=== PATIENT | female | born 1990 | race Hispanic/Latino ===

== ENCOUNTER 2018-04-19 14:49 | Inpatient (IN) | payer BC ==
[~2018-04-19] VITALS: Ht 160 cm; Wt 88.0 kg
--- NOTE | 2018-04-19 18:02 | PR ---
[facility] [address] [place], [place] [address] Signed Progress Notes IP Datetime Report Generated by CPN: 04/19/2018 18:01 PROGRESS NOTES: [id number] Impression: Normal progression of labor; Reassuring heart rate Plan: Continue present management VITAL SIGNS: [id number] Vital Signs: Reviewed VS Notable Details: Slightly elevated systolic BP EXAM: [id number] Dilatation: 5.5 Effacement: 90 Station: -2 Uterine Contractions: q 2-3 minutes MEMBRANES: [id number] Membrane Status: Bulging Amniotic Fluid Color: Clear Comments: Pt seen and examined. Doing well. Ctxs painful and regular. Does not desire intervention. Residual bulging membranes noted by RN at last cervix check. Pt declines AROM at this time. Will continue expectant management. BPs good. No SCOTT, RUQ pain, or visual changes. Fetus A: [id number] FHR Baseline: 130 Variability: Moderate 6-25bpm Accelerations: 15X15 Decelerations: None FHR Category: Category I Presentation: Vertex Comments on Fetus A: No evidence of metabolic acidosis Fetus B: [id number] Signing Physician: Maryann Shoemaker DO Copies: ~ *Electronically Signed* 04/19/18 1804 MARYANN SHOEMAKER DO PATIENT NAME: ALEXANDRA WALL PROGRESS NOTE DATE OF : 86 PHYSICIAN: MARYANN SHOEMAKER DO RPT #: [id number] REPORT IS CONFIDENTIAL AND NOT TO BE RELEASED WITHOUT AUTHORIZATION
--- NOTE | 2018-04-19 18:03 | PR ---
[facility] [address] [employer] [employer], [place] [address] Signed Progress Notes IP Datetime Report Generated by CPN: 04/19/2018 18:02 PROGRESS NOTES: [id number] Impression: Normal progression of labor; Reassuring heart rate Plan: Continue present management VITAL SIGNS: [id number] Vital Signs: Reviewed VS Notable Details: Slightly elevated systolic BP EXAM: [id number] Dilatation: 5.5 Effacement: 90 Station: -2 Uterine Contractions: q 2-3 minutes MEMBRANES: [id number] Membrane Status: Bulging Amniotic Fluid Color: Clear Comments: Pt seen and examined. Doing well. Ctxs painful and regular. Does not desire intervention. Residual bulging membranes noted by RN at last cervix check. Pt declines AROM at this time. Will continue expectant management. BPs good. No SCOTT, RUQ pain, or visual changes. Fetus A: [id number] FHR Baseline: 130 Variability: Moderate 6-25bpm Accelerations: 15X15 Decelerations: None FHR Category: Category I Presentation: Vertex Comments on Fetus A: No evidence of metabolic acidosis Fetus B: [id number] Signing Physician: Maryann Shoemaker DO Copies: ~ *Electronically Signed* 04/19/181801 MARYANN SHOEMAKER DO PATIENT NAME: ALEXANDRA WALL PROGRESS NOTE DATE OF : 86 PHYSICIAN: MARYANN SHOEMAKER DO RPT #: [id number] REPORT IS CONFIDENTIAL AND NOT TO BE RELEASED WITHOUT AUTHORIZATION
--- NOTE | 2018-04-19 19:41 | PR ---
[facility] [address] [facility] [place], [place] [address] Signed Progress Notes IP Datetime Report Generated by CPN: 04/19/2018 19:41 PROGRESS NOTES: [id number] Impression: Normal progression of labor; Reassuring heart rate Plan: Continue present management VITAL SIGNS: [id number] Vital Signs: Reviewed; Within Normal Limits VS Notable Details: Slightly elevated systolic BP EXAM: [id number] Dilatation: 6.0 Effacement: 90 Station: -2 Uterine Contractions: q 2-3 minutes MEMBRANES: [id number] Membrane Status: Bulging Amniotic Fluid Color: Clear Comments: Reviewed strip and progress w/ RN. Pt just checked and no bulgy bag noted; possible SROM. CTXs painful, but pt tolerating well and now in the tub. Will continue expectant management. Fetus A: [id number] FHR Baseline: 130 Variability: Moderate 6-25bpm Accelerations: 15X15 Decelerations: None FHR Category: Category I Presentation: Vertex Comments on Fetus A: No evidence of metabolic acidoisis Fetus B: [id number] Signing Physician: Maryann Shoemaker DO Copies: ~ *Electronically Signed* 04/19/181940 MARYANN SHOEMAKER DO PATIENT NAME: ALEXANDRA WALL PROGRESS NOTE DATE OF : 86 PHYSICIAN: MARYANN SHOEMAKER DO RPT #: [id number] REPORT IS CONFIDENTIAL AND NOT TO BE RELEASED WITHOUT AUTHORIZATION
--- NOTE | 2018-04-19 22:49 | PR ---
[facility] [address] [place], [place] [address] Signed Progress Notes IP Datetime Report Generated by CPTriston: 04/19/2018 22:48 PROGRESS NOTES: [id number] Impression: Normal progression of labor Procedures: Artificial ROM; Sterile Vag Exam Plan: Continue present management Other Plans: Consider IUPC if no significant cervical change in 1-2 hrs Other Informed Consents: AROM VITAL SIGNS: [id number] Vital Signs: Reviewed VS Notable Details: Slightly elevated systolic BP EXAM: [id number] Dilatation: 7.0 Effacement: 90 Station: -1 Uterine Contractions: q2 minutes MEMBRANES: [id number] Membrane Status: Bulging Amniotic Fluid Color: Clear Comments: Pt seen and examined. Doing well. Contractions painful and frequent. Has not continued to leak fluid. On exam she has a large bulging bag. Reviewed AROM and patient gives verbal consent. AROM performed without difficulty for moderate amount of clear fluid. Pt declines epidural at this time. Mother and baby doing well. Continue expectant management. Consider IUPC if no significant cervical change in 1-2 hrs. Fetus A: [id number] FHR Baseline: 150 Variability: Moderate 6-25bpm Accelerations: 15X15 Decelerations: Variable FHR Category: Category II Presentation: Vertex Comments on Fetus A: No evidence of metabolic acidosis Fetus B: [id number] Signing Physician: Maryann Shoemaker DO Copies: *Electronically Signed* 04/19/18 3135 MARYANN SHOEMAKER DO PATIENT NAME: ALEXANDRA WALL PROGRESS NOTE DATE OF : 86 PHYSICIAN: MARYANN SHOEMAKER DO RPT #: [id number] REPORT IS CONFIDENTIAL AND NOT TO BE RELEASED WITHOUT AUTHORIZATION [address] [place], [place] [address] Signed ~ *Electronically Signed* 04/19/18 2248 MARYANN SHOEMAKER DO PATIENT NAME: ALEXANDRA WALL PROGRESS NOTE DATE OF : 86 PHYSICIAN: MARYANN SHOEMAKER DO RPT #: [id number] REPORT IS CONFIDENTIAL AND NOT TO BE RELEASED WITHOUT AUTHORIZATION
--- NOTE | 2018-04-20 02:32 | PR ---
[facility] [address] [place], [place] [address] Signed Progress Notes IP Datetime Report Generated by MARCUS: 04/20/2018 02:32 PROGRESS NOTES: [id number] Impression: Normal progression of labor; Reassuring heart rate Procedures: Artificial ROM; Sterile Vag Exam Plan: Continue present management; Anticipate Vaginal Delivery Other Plans: Consider IUPC if no significant cervical change in 1-2 hrs Informed Consent Obtain: Vaginal Delivery Other Informed Consents: AROM VITAL SIGNS: [id number] Vital Signs: Reviewed; Within Normal Limits VS Notable Details: Slightly elevated systolic BP EXAM: [id number] Dilatation: 10.0 Effacement: 100 Station: 0 Uterine Contractions: q2 minutes MEMBRANES: [id number] Membrane Status: Bulging Amniotic Fluid Color: Clear Comments: Pt seen and evaluated. Doing well. Pt complete and feeling urge to push. FHT reassuring. Anticipate soon. Pelvic exam per RN Fetus A: [id number] FHR Baseline: 130 Variability: Moderate 6-25bpm Accelerations: 15X15 Decelerations: Variable FHR Category: Category II Presentation: Vertex Comments on Fetus A: No evidence of metabolic acidosis Fetus B: [id number] Signing Physician: Maryann Shoemaker DO Copies: ~ *Electronically Signed* 04/20/18 0232 MARYANN SHOEMAKER DO PATIENT NAME: ALEXANDRA WALL PROGRESS NOTE DATE OF : 86 PHYSICIAN: MARYANN SHOEMAKER DO RPT #: [id number] REPORT IS CONFIDENTIAL AND NOT TO BE RELEASED WITHOUT AUTHORIZATION
--- NOTE | 2018-04-21 14:34 | PR ---
[facility] [address] [place], [place] [address] Signed PP Progress Notes Datetime Report Generated by CPN: 04/21/2018 14:34 SUBJECTIVE: [id number] Pain: Within normal limits Nausea/Vomiting: Denies Flatus: Yes Bowel Movement: No Vital Signs: [id number] Vital Signs: Reviewed; Within Normal Limits EXAM: [id number] Cardiovascular: Normal Respiratory: Normal Abdomen/Uterus: Normal Lochia: Normal Vulva/Perineum: Not Done Breasts: Not Done CVA Tenderness: Normal Extremities: Normal Incision: Not Applicable Progress: Normal Exam Comments: Fundus Firm U-2 nontender IMPRESSION/PLAN/PROCEDURES: [id number] Progress Notes: Pt seen and examined. Doing well. Ambulating, voiding, and tolerating full diet. Pain and lochia minimal. well. No fevers/chills/concerns. Desires d/c home. Reviwed 3rd degree lac and importance of avoiding constipation. Signing Physician: Maryann Shoemaker DO Copies: ~ *Electronically Signed* 04/21/18 1434 MARYANN SHOEMAKER DO PATIENT NAME: ALEXANDRA WALL PROGRESS NOTE DATE OF : 86 PHYSICIAN: MARYANN SHOEMAKER DO RPT #: [id number] REPORT IS CONFIDENTIAL AND NOT TO BE RELEASED WITHOUT AUTHORIZATION
== END 2018-04-21 19:50 | disposition home or self-care (01) | DRG 768 ==
LOC: FBCO 14:49 → FBC 15:00 → FBCO 04-24 18:21
PROVIDERS: ADMIT Obstetrics & Gynecology
PROC: 10E0XZZ Delivery of Products of Conception, External Approach (ICD-10-PCS; principal; 2018-04-20)
PROC: 0DQR0ZZ Repair Anal Sphincter, Open Approach (ICD-10-PCS; 2018-04-20)
DX: O70.20 Third degree perineal laceration during delivery, unspecified (principal); Z37.0 Single live birth; Z3A.39 39 weeks gestation of pregnancy; O76 Abnormality in fetal heart rate and rhythm complicating labor and delivery; O69.1XX0 Labor and delivery complicated by cord around neck, with compression, not applicable or unspecified; Z87.440 Personal history of urinary (tract) infections; Z86.19 Personal history of other infectious and parasitic diseases
CPT/HCPCS: 36415; 82803; 85027; J2590; J7120

== ENCOUNTER 2021-12-24 07:37 | Inpatient (IN) | payer BC ==
[~2021-12-24] VITALS: Ht 160 cm; Wt 86.2 kg
--- NOTE | 2021-12-24 09:40 | NUR ---
COVID SWAB COLLECTED SENT TO LAB
--- NOTE | 2021-12-24 15:13 | PR ---
[facility] [address] [facility] [place], [place] [address] Signed Progress Notes IP Datetime Report Generated by CPN: 12/24/2021 15:13 PROGRESS NOTES: [id number] Impression: Normal Progression of Labor; Reassuring Heart Rate Procedures: Sterile Vag Exam Plan: Continue Present Management; Anticipate Vaginal Delivery Informed Consent Obtain: Vaginal Delivery VITAL SIGNS: [id number] Vital Signs: Reviewed; Within Normal Limits EXAM: [id number] Dilatation: 7.5 Effacement: 90 Station: -2 Contractions: Rare MEMBRANES: [id number] Comments: Pt seen and examined. Doing well. Uncomfortable w/ contractions. Using nitrous w/ good success. Anticipate soon. FETUS A: [id number] FHR Baseline: 140 Variability: Moderate 6-25bpm Accelerations: 15X15 Decelerations: None FHR Category: Category I Presentation: Vertex Comments on Fetus A: No evidence of metabolic acidosis FETUS B: [id number] Signing Physician: Maryann Shoemaker DO Copies: ~ *Electronically Signed* 12/24/21 1513 MARYANN SHOEMAKER DO PATIENT NAME: ALEXANDRA WALL PROGRESS NOTE DATE OF : 86 PHYSICIAN: MARYANN SHOEMAKER DO RPT #: [id number] REPORT IS CONFIDENTIAL AND NOT TO BE RELEASED WITHOUT AUTHORIZATION
--- NOTE | 2021-12-24 17:05 | PR ---
[facility] [address] [facility] [place] [place] [address] Signed Progress Notes IP Datetime Report Generated by CPN: 12/24/2021 17:05 PROGRESS NOTES: [id number] Impression: Normal Progression of Labor; Reassuring Heart Rate Procedures: Sterile Vag Exam Plan: Anticipate Vaginal Delivery Informed Consent Obtain: Vaginal Delivery VITAL SIGNS: [id number] Vital Signs: Reviewed; Within Normal Limits EXAM: [id number] Dilatation: 9.5 Effacement: 100 Station: -1 Contractions: Rare MEMBRANES: [id number] Comments: Pt seen and examined. Reducable anterior lip. Pt set up for delivery. Anticipate soon FETUS A: [id number] FHR Baseline: 140 Variability: Moderate 6-25bpm Accelerations: 15X15 Decelerations: None FHR Category: Category I Presentation: Vertex Comments on Fetus A: No evidence of metabolic acidosis FETUS B: [id number] Signing Physician: Maryann Shoemaker DO Copies: ~ *Electronically Signed* 12/24/21 1705 MARYANN SHOEMAKER DO PATIENT NAME: YANA WALLKIKI HEATH PROGRESS NOTE DATE OF : 86 PHYSICIAN: MARYANN SHOEMAKER DO RPT #: [id number] REPORT IS CONFIDENTIAL AND NOT TO BE RELEASED WITHOUT AUTHORIZATION
--- NOTE | 2021-12-25 16:54 | PR ---
[facility] [address] [facility] [place], [place] [address] Signed PP Progress Notes Datetime Report Generated by CPN: 12/25/2021 16:54 SUBJECTIVE: [id number] Pain: Within Normal Limits Nausea/Vomiting: Denies Flatus: Yes Bowel Movement: No Vital Signs: [id number] Vital Signs: Reviewed; Within Normal Limits EXAM: Ongoing Cardiovascular: Normal Respiratory: Normal Abdomen/Uterus: Normal Lochia: Normal Vulva/Perineum: Not Done Breasts: Not Done CVA Tenderness: Normal Extremities: Normal Incision: Not Applicable Progress: Normal Exam Comments: Fundus firm U-2 nontender IMPRESSION/PLAN/PROCEDURES: [id number] Impression: Normal Progression Plan: Discharge Progress Notes: Pt seen and examined. Doing well. Ambulating, voiding, and tolerating fulll diet. Pain and lochia minimal. well. No fevers/chills or other concerns. Desires d/c home today. Reviewed d/c instructions in detail. Planning vasectomy . No questions or concerns. Reviewed d/c meds. Signing Physician: Maryann Shoemaker DO Copies: ~ *Electronically Signed* 12/25/21 2088 MARYANN SHOEMAKER DO PATIENT NAME: ALEXANDRA WALL PROGRESS NOTE DATE OF : 86 PHYSICIAN: MARYANN SHOEMAKER DO RPT #: [id number] REPORT IS CONFIDENTIAL AND NOT TO BE RELEASED WITHOUT AUTHORIZATION
== END 2021-12-25 18:50 | disposition home or self-care (01) | DRG 807 ==
LOC: FBC 07:37
PROVIDERS: ADMIT Obstetrics & Gynecology; ATTEND Obstetrics & Gynecology
PROC: 10E0XZZ Delivery of Products of Conception, External Approach (ICD-10-PCS; principal; 2021-12-24)
PROC: 10907ZC Drainage of Amniotic Fluid, Therapeutic from Products of Conception, Via Natural or Artificial Opening (ICD-10-PCS; 2021-12-24)
PROC: 0HQ9XZZ Repair Perineum Skin, External Approach (ICD-10-PCS; 2021-12-24)
DX: O48.0 Post-term pregnancy (principal); Z37.0 Single live birth; O69.1XX0 Labor and delivery complicated by cord around neck, with compression, not applicable or unspecified; Z3A.40 40 weeks gestation of pregnancy; Z20.822 Contact with and (suspected) exposure to COVID-19; O70.0 First degree perineal laceration during delivery; Z67.40 Type O blood, Rh positive
CPT/HCPCS: 36415; 85027; 86850; 86900; 86901; 87502; A9270; C9803; J2590; J7121; U0003